=== PATIENT | male | born 1990 | race Caucasian/White ===

== ENCOUNTER 2024-06-02 16:19 | Emergency (ER) | payer MEDICAID, SELFPAY ==
[2024-06-02 16:24] VITALS: BP 130/79; PULSE 104; TEMP 36.8; O2SAT 99; BMI 29.5
[2024-06-02 18:48] LABS: Bilirubin Urine Negative (Negative); Blood Urine Negative (Negative); Glucose Urine UA Negative (Normal); Ketones Urine Trace (Negative); Leukocyte Esterase Urine Negative (Negative); Nitrate Urine Negative (Negative); Protein Urine Trace (Negative); Specific Gravity, Urine 1.029 (1.005-1.030); Urine Appearance Clear (CLEAR); Urine Color Yellow (Yellow); pH Urine 5.5 (5-7)
[2024-06-02 18:52] LABS: Basophils # 0.1 10^3/uL (0.0-0.1); Basophils % 0.9 %; Eosinophils # 0.1 10^3/uL (0.0-0.8); Eosinophils % 0.9 %; Hematocrit 46.5 % (37-53); Lymphocytes # 3.5 10^3/uL (0.8-4.8); Lymphocytes % 30.8 %; Mean Corpuscular HGB Conc 32.3 g/dL (30-55); Mean Corpuscular Hemoglobin 29.3 pg (27-33); Mean Corpuscular Volume 90.8 fl (82-101); Mean Platelet Volume 10.7 fL (7.4-10.4); Monocytes # 0.8 10^3/uL (0.2-0.9); Monocytes % 6.6 %; Neutrophils # 6.87 10^3/uL (1.8-7.7); Neutrophils % 60.6 %; Nucleated Red Blood Cells % 0 %; Platelet Count 242 10^3/cmm (157-399); Red Blood Count 5.12 10^6/uL (3.85-5.65); Red Cell Distribution Width 12.5 % (12.1-15.1); White Blood Count 11.33 10^3/uL (3.29-11.43)
[2024-06-02 18:53] LABS: Add Urine Microscopic? YES; Bacteria Urine None Seen /hpf; Hyaline Casts Urine 1.65 /lpf; Squamous Epithelial Cell Urine 0-5 /hpf (0-5); WBC Urine 0-5 /hpf (0-5)
[2024-06-02 19:06] LABS: UA Slide Review UA Slide Review Perf
[2024-06-02 19:08] LABS: Add Urine Culture? No; Sperm Urine 2+ /hpf
[2024-06-02 19:24] LABS: Alanine Aminotransferase 10 U/L (0-41); Albumin Level 4.2 g/dL (3.5-5.2); Alkaline Phosphatase 87 U/L (40-130); Aspartate Amino Transferase 13 U/L (0-40); Blood Urea Nitrogen 12 mg/dL (6-20); Calcium 9.1 mg/dL (8.5-10.5); Carbon Dioxide 26 mmol/L (22-29); Chloride 101 mmol/L (98-107); Creatinine Clr Calc Pharmacy 187.8818; Globulin 2.9 g/dL (1.3-4.6); Glomerular Filtration Rate 127.6 mL/min (90-130); Glucose 98 mg/dL (65-115); Osmolality Calculated 284 mOsm/kg (285-295); Sodium 137 mmol/L (136-145); Total Bilirubin 0.3 mg/dL (0.15-1.2); Total Protein 7.1 g/dL (6.6-8.7)
--- NOTE | 2024-06-02 21:07 | ED_ITS ---
HPI - Male Genitourinary 2 General: Chief complaint: Urogenital-Male Stated complaint: lower abd pain Time Seen by Provider: 06/02/24 19:23 Source: patient Mode of arrival: ambulatory Limitations: no limitations History of Present Illness: Patient is a 34-year-old male who presents to the emergency department with lower abdominal pain for the past month. States when it started he was seen at [facility], had labs and imaging at that time that were completely normal. States pain has just been constant since has not changed at all. States it is worse with movement, he is wondering about his prostate. States that it is taking him longer to start voiding, however is not having any hematuria or dysuria. 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 He has appointment with primary care early next week. Not reporting any fever, diarrhea or constipation, or other symptoms at this time. Pain does not radiate, primarily to suprapubic region. No penile discharge, testicular pain, or perineal pain. Onset (ago): month(s) (1) Duration: constant Location: abdomen (Suprapubic) Severity: mild Exacerbating factors: movement Associated symptoms: Deny dysuria, nausea or vomiting Related Data Allergies Allergy/AdvReac Type Severity Reaction Status Date / Time No Known Allergies Allergy Verified 06/02/24 16:26 Review of Systems 2 General: Reports: 10 or more systems reviewed and unremarkable except in HPI and below Const: Denies: fever(s), chills, change in appetite, change in weight or diaphoresis ENMT: Denies: throat pain or hoarseness Card: Denies: chest pain, palpitations or lightheadedness Resp: Denies: dyspnea, productive cough or wheezing GI: Reports: abdominal pain; Denies: nausea, vomiting, diarrhea, constipation, bloating, change in stool character or hematochezia : Reports: difficulty urinating; Denies: flank pain, dysuria, urinary frequency or urinary urgency Musc: Denies: neck pain or back pain Skin/Breast: Denies: rash or new lesions Neuro: Denies: headache(s) or dizziness Physical Exam 2 Const: COMMON NORMALS: no acute distress, average body habitus, patient oriented x3, no limitations, healthy appearing, alert and well nourished G ENERAL APPEARANCE: cooperative and comfortable ORIENTATION/CONSCIOUSNESS: Yes awake HENMT: COMMON NORMALS: normocephalic, atraumatic, hearing grossly normal bilaterally, external ears normal, Normal external nose present, Normal nasal mucous membranes and turbinates present and moist oral mucous membranes HEAD & SCALP: normocephalic and atraumatic NOSE: Normal external nose present and Normal nasal mucous membranes and turbinates present EXTERNAL EAR: Yes external ears normal Eye: COMMON NORMALS: Equal, round and reactive pupils present, EOMs intact bilaterally, conjunctivae normal and normal visual guillen by confrontation C ONJUNCTIVA: Yes conjunctivae normal PUPIL: Yes Equal, round and reactive pupils present Neck/C-Spine: COMMON NORMALS: full ROM, supple, no meningeal signs and no JVD Resp: COMMON NORMALS: normal respiratory effort, No retractions, No use of accessory muscles and clear to auscultation bilaterally AUSCULTATION: clear to auscultation bilaterally, no crackles, no rales, no rhonchi and no wheezes Cardio: COMMON NORMALS: no JVD, regular rate, regular rhythm, S1 normal heart sound present, S2 normal heart sound present, No gallops present (Cardio), No clicks present (Cardio), No murmurs present (Cardio), No rub (Cardio) and Peripheral pulses 2+ throughout RATE: regular rate RHYTHM: regular rhythm HEART SOUNDS: S1 normal heart sound present and S2 normal heart sound present PERIPHERAL PULSES: Peripheral pulses 2+ throughout GI: COMMON NORMALS: Normal to inspection, nondistended, normoactive bowel sounds present, Soft to palpation, No hepatosplenomegaly present and no masses AUSCULTATION: Yes normoactive bowel sounds PALPATION: Yes Soft to palpation, No Guarding due to palpation present (GI), No Rigid due to palpation and Yes No hepatosplenomegaly present RECTAL EXAM: Yes deferred OTHER: Very mild suprapubic tenderness to palpation, no palpable mass : COMMON NORMALS: Yes no CVA tenderness BLADDER/KIDNEY EXAM: Yes no CVA tenderness Back/Pelvis: COMMON NORMALS: no CVA tenderness Extremity: COMMON NORMALS: normal to inspection and full ROM Neuro: COMMON NORMALS: patient oriented x3, moves all extremities, no focal motor deficits and no sensory deficits noted SENSORIUM/ORIENTATION: Yes alert MENINGEAL SIGNS: Yes no meningeal signs Psych: COMMON NORMALS: mental status grossly normal, cooperative and speech normal SPEECH: Yes normal speech Skin: COMMON NORMALS: no rashes or lesions noted GENERAL SKIN EXAM: no rashes or lesions noted Course 2 Vital Signs: Vital signs: Vital Signs Temperature 98.2 F 06/02/24 16:24 Pulse Rate 104 H 06/02/24 16:24 Blood Pressure 130/79 06/02/24 16:24 Pulse Oximetry 99 06/02/24 16:24 Oxygen Delivery Me thod Room Air 06/02/24 16:24 MDM - Male Medical Decision Making Patient has been dealing with suprapubic abdominal pain for the past month, states it has been difficult for him to start stream when voiding. Urinalysis was negative for any signs of infection. His blood work was normal. Offered him CT despite him having 1 a month ago at presentation, he denied this stating he would rather follow-up with primary care just wanted to make sure that there was no infection in his urine. I informed him to return if his symptoms worsen, he if he develops any fevers or starts having more urinary symptoms, he agrees states he will come back if this happens but will follow-up with primary care as already scheduled. Lab Data 06/02/24 18:45 06/02/24 18:45 Laboratory Results WBC 11.33 10^3/uL (3.29-11.43) 06/02/24 18:45 RBC 5.12 10^6/uL (3.85-5.65) 06/02/24 18:45 Hgb 15.00 g/dL (11.27-16.99) 06/02/24 18:45 Hct 46.5 % (37-53) 06/02/24 18:45 MCV 90.8 fl (82-101) 06/02/24 18:45 MCH 29.3 pg (27-33) 06/02/24 18:45 MCHC 32.3 g/dL (30-55) 06/02/24 18:45 RDW 12.5 % (12.1-15.1) 06/02/24 18:45 Plt Count 242 10^3/cmm (157-399) 06/02/24 18:45 MPV 10.7 fL (7.4-10.4) H 06/02/24 18:45 Neut % (Auto) 60.6 % 06/02/24 18:45 Lymph % (Auto) 30.8 % 06/02/24 18:45 [place] % (Auto) 6.6 % 06/02/24 18:45 Eos % (Auto) 0.9 % 06/02/24 18:45 Baso % (Auto) 0.9 % 06/02/24 18:45 Neut # (Auto) 6.87 10^3/uL (1.8-7.7) 06/02/24 18:45 Lymph # (Auto) 3.5 10^3/uL (0.8-4.8) 06/02/24 18:45 [place]ama # (Auto) 0.8 10^3/uL (0.2-0.9) 06/02/24 18:45 Eos # (Auto) 0.1 10^3/uL (0.0-0.8) 06/02/24 18:45 Baso # (Auto) 0.1 10^3/uL (0.0-0.1) 06/02/24 18:45 Nucleated RBC % (auto) 0 % 06/02/24 18:45 Nucleated RBCs # 0.0 /100WBC 06/02/24 18:45 Sodium 137 mmol/L (136-145) 06/02/24 18:45 Potassium 4.0 mmol/L (3.5-5.1) 06/02/24 18:45 Chloride 101 mmol/L (98-107) 06/02/24 18:45 Carbon Dioxide 26 mmol/L (22-29) 06/02/24 18:45 Anion Gap 14.0 (5-19) 06/02/24 18:45 BUN 12 mg/dL (6-20) 06/02/24 18:45 Creatinine 0.7 mg/dL (0.7-1.2) 06/02/24 18:45 GFR Calculation 127.6 mL/min (90-130) 06/02/24 18:45 Glucose 98 mg/dL (65-115) 06/02/24 18:45 Calculated Osmolality 284 mOsm/kg (285-295) L 06/02/24 18:45 Calcium 9.1 mg/dL (8.5-10.5) 06/02/24 18:45 Total Bilirubin 0.3 mg/dL (0.15-1.2) 06/02/24 18:45 AST 13 U/L (0-40) 06/02/24 18:45 ALT 10 U/L (0-41) 06/02/24 18:45 Alkaline Phosphatase 87 U/L (40-130) 06/02/24 18:45 Total Protein 7.1 g/dL (6.6-8.7) 06/02/24 18:45 Albumin 4.2 g/dL (3.5-5.2) 06/02/24 18:45 Globulin 2.9 g/dL (1.3-4.6) 06/02/24 18:45 Urine Color Yellow (Yellow) 06/02/24 17:27 Urine Appearance Clear (CLEAR) 06/02/24 17:27 Urine pH 5.5 (5-7) 06/02/24 17:27 Ur Specific [place] 1.029 (1.005-1.030) 06/02/24 17:27 Urine Protein Trace (Negative) A 06/02/24 17:27 Urine Glucose (UA) Negative (Normal) 06/02/24 17:27 Urine Ketones Trace (Negative) 06/02/24 17:27 Urine Blood Negative (Negative) 06/02/24 17:27 Urine Nitrate Negative (Negative) 06/02/24 17:27 Urine Bilirubin Negative (Negative) 06/02/24 17:27 Urine Urobilinogen 1.0 mg/dL (Negative) 06/02/24 17:27 Ur Leukocyte Esterase Negative (Negative) 06/02/24 17:27 Urine RBC 3-5 /hpf (0-2) 06/02/24 17:27 Urine WBC 0-5 /hpf (0-5) 06/02/24 17:27 Ur Squamous Epith Cells 0-5 /hpf (0-5) 06/02/24 17:27 Amorphous Sediment Not Reportable 06/02/24 17:27 Urine Bacteria None seen /hpf (NONE) 06/02/24 17:27 Hyaline Casts 1.65 /lpf 06/02/24 17:27 Urine Sperm 2+ /hpf 06/02/24 17:27 No radiology studies performed this visit Discharge Plan Discharge Patient Disposition: Home Clinical Impression: Abdominal pain, lower Condition: Stable Discharge Orders: Discharge ED (Routine); Ordered 01/07/25 Ordered By: Carlos Bermudez Referrals: Suha Barrera FNP [Primary Care Provider] - Patient Instructions: Abdominal Pain (ED) Activity Restrictions/Additional Instructions: Please follow-up with primary care as planned. If you develop any fevers, worsening pain, blood in your urine, or other concerning symptoms please return to the emergency department as discussed. Ibuprofen/Tylenol for any musculoskeletal pain. Drink plenty of fluids. Coding Level of Care Code ED [employer]
== END 2024-06-02 21:17 | disposition home or self-care (01) ==
PROVIDERS: Physician Assistant; Emergency Provider Physician Assistant; Family Provider Nurse Practitioner; PCP Nurse Practitioner
DX: R10.9 Unspecified abdominal pain (principal)
CPT/HCPCS: 36415; 80053; 81001; 85025; 99283